=== PATIENT | male | born 1965 | race African-American/Black ===

== ENCOUNTER 2017-08-24 17:22 | Emergency (ER) | payer MEDICAID ==
[~2017-08-24] VITALS: Ht 185.4 cm; Wt 109.0 kg
[2017-08-24 22:53] VITALS: BP 146/85
== END 2017-08-24 22:54 | disposition home or self-care (01) ==
LOC: ER 21:36
DX: S93.491A Sprain of other ligament of right ankle, initial encounter (principal); I10 Essential (primary) hypertension; W22.8XXA Striking against or struck by other objects, initial encounter; Y93.89 Activity, other specified; Y92.89 Other specified places as the place of occurrence of the external cause; Y99.8 Other external cause status
CPT/HCPCS: 73610; 73630; 99284